=== PATIENT | female | born 1980 | race Caucasian/White ===

== ENCOUNTER 2023-07-14 10:40 | Emergency (ER) | payer SELFPAY ==
[2023-07-14] MEDS ORDERED: Ipratropium/Albuterol 3 ML NEB ONE (11:06)
[2023-07-14] MEDS ORDERED: methylPREDNISolone Sod Succ 40 MG VIAL ONE (11:06)
== END 2023-07-14 12:02 | disposition home or self-care (01) ==
LOC: BURERS 10:40
DX: J20.9 Acute bronchitis, unspecified (principal); F17.200 Nicotine dependence, unspecified, uncomplicated; Z20.822 Contact with and (suspected) exposure to COVID-19
CPT/HCPCS: 71046; 87635; 87804; 94640; 96372; J2920; J7620